=== PATIENT | male | born 1940 | race Caucasian/White ===

== ENCOUNTER 2017-05-22 16:12 | Observation (INO) | payer MEDICARE, OTHER ==
[~2017-05-22] VITALS: Ht 182.9 cm; Wt 112.9 kg
[~2017-05-22 16:12] MED LIST: ACET325 PO; ACET500 PO; ACIDOPHILUS1 EAC2 PO; ALTACE PO; AREDS PO; ASCO500 PO; ASPI81EC PO; ATOR80 PO; CHOL10002 PO; CHOLESTYRAMINE PO; CILO50 PO; CILOSTAZOL PO; CLON.1 PO; CLOP75 PO; Cilostazol50 MG PO; Cinnamon500 MG PO; DIGO.25 PO; DILT180 PO; DILT180ER PO; DILTIAZEM 180 MG; DIPATR PO; FENO145 PO; FERR325 PO; FINA5 PO; FISH1000 PO; FURO20 PO; FURO40 PO; Ferrous Sulfat325 M2 PO; GLYB5 PO; Garlic1 EACH PO; Glyburide5 MG PO; HYDACE5325 PO; Hair, Skin & N1 EACH PO; INSDET100 SC; INSDET100 SQ; INSU100I6 SC; INSUASPI SC; IPRA.03NI; IPRA.06NI; LEVSOD125 PO; LEVSOD150 PO; LEVSOD175 PO; LEVSOD25 PO; LEVSOD75 PO; LOPE2C PO; Lutein6 MG PO; MAGOXI400 PO; METF500 PO; METO100 PO; METO50 PO; MULTI VITAMIN1 EACH PO; MULVITMIND PO; Metoprolol Tar100 MG PO; NIAC500ER PO; Niacin1000 MG PO; OMEG1CAP30 PO; OMEP20ER PO; OXYM.05NI; Omeprazole20 M1 PO; POTCHL20ER PO; PRESERVISION A1 EACH PO; RAMI5 PO; SPIR25 PO; Synthroid300 MCG PO; TAMS.4ER PO; TAZTIA XT360 MG PO; Tiazac180 MG PO; WARF10 PO; WARF5 PO; WARF7.5 PO; ZEAXANTHIN100 GM; Zofran Odt4 MG SL
[2017-05-22 17:13] LABS: BASOPHILS ABSOLUTE AUTO 0.03 K/mm3 (0.00-0.23); BASOPHILS PERCENT AUTO 0 % (0-2); EOSINOPHILS ABSOLUTE AUTO 0.16 K/mm3 (0.00-0.68); EOSINOPHILS PERCENT AUTO 2 % (0-6); Hematocrit 29.2 % (37.0-53.0); Hemoglobin 9.4 g/dL (13.5-17.5); IMMATURE GRAN ABSOLUTE AUTO 0.02 K/mm3 (0.00-0.10); IMMATURE GRAN PERCENT AUTO 0 % (0-1); LYMPHOCYTES ABSOLUTE AUTO 1.27 K/mm3 (0.84-5.20); LYMPHOCYTES PERCENT AUTO 16 % (21-46); MONOCYTES PERCENT AUTO 11 % (4-13); Mean Corpuscular HGB 29.3 pg (26.0-34.0); Mean Corpuscular HGB Conc 32.2 g/dL (31.5-36.5); Mean Corpuscular Volume 91 fL (80-100); Mean Platelet Volume 10.4 fL (9.1-12.4); NEUTROPHILS PERCENT AUTO 71 % (41-73); Platelet Count 160 K/mm3 (150-400); RDW Coefficient Variation 16.7 % (11.7-14.2); RDW Standard Deviation 54.6 fL (35.1-46.3); Red Blood Cell Count 3.21 M/mm3 (4.30-5.90); White Blood Cell Count 8.08 K/mm3 (4.00-11.30)
[2017-05-22 17:37] LABS: Albumin, Blood 3.4 g/dL (3.4-5.0); Bilirubin, Total 0.4 mg/dL (0.1-1.0); Bun/Creatinine Ratio 22.1 (12.0-20.0); Calcium, Blood 8.4 mg/dL (8.5-10.1); Creatinine, Blood 1.81 mg/dL (0.60-1.20); Globulin, Blood 3.4 g/dL (2.2-4.0); Potassium, Blood 4.2 mmol/L (3.5-5.5); Total Protein, Blood 6.8 g/dL (6.4-8.2)
[2017-05-22 17:46] LABS: Troponin I 0.775 ng/mL (0.000-0.040)
[2017-05-22 20:10] LABS: International Normalized Ratio 2.07
[2017-05-22] MEDS ORDERED: METO25 PO (22:32)
[2017-05-23 02:04] LABS: Hematocrit 27.8 % (37.0-53.0); Hemoglobin 8.8 g/dL (13.5-17.5); Mean Corpuscular HGB 28.2 pg (26.0-34.0); Mean Corpuscular HGB Conc 31.7 g/dL (31.5-36.5); Mean Corpuscular Volume 89 fL (80-100); Mean Platelet Volume 10.1 fL (9.1-12.4); Platelet Count 148 K/mm3 (150-400); RDW Coefficient Variation 16.8 % (11.7-14.2); RDW Standard Deviation 53.2 fL (35.1-46.3); Red Blood Cell Count 3.12 M/mm3 (4.30-5.90); White Blood Cell Count 9.29 K/mm3 (4.00-11.30)
[2017-05-23 02:20] LABS: Anion Gap 9 mmol/L (6-16); Blood Urea Nitrogen 37 mg/dL (8-24); CHOL/HDL RATIO 2.7; CO2, Blood 21 mmol/L (21-32); Calcium, Blood 8.9 mg/dL (8.5-10.1); Chloride, Blood 111 mmol/L (98-108); Cholesterol 60 mg/dL (50-200); Creatinine, Blood 1.68 mg/dL (0.60-1.20); Glomerular Filtration Rate 42 (60-); Glucose, Blood 118 mg/dL (70-99); HDL Cholesterol 22 mg/dL (>39); LDL/HDL RATIO 0.2; Low Density Lipoprotein Chol 4 mg/dL (0-110); Potassium, Blood 3.8 mmol/L (3.5-5.5); Sodium, Blood 141 mmol/L (136-145); Triglycerides 171 mg/dL (30-160); Very Low Density Lipoprot Chol 34 mg/dL (6-32)
[2017-05-23 02:22] LABS: International Normalized Ratio 2.01; Prothrombin Time Results 21.4 Sec (9.7-11.5)
[2017-05-23 02:26] LABS: Creatine Kinase MB 2.8 ng/mL (0.0-3.6); Creatine Kinase MB Index 3.4 (0.0-4.0)
[2017-05-23 02:33] LABS: Troponin I 0.624 ng/mL (0.000-0.040)
[2017-05-23 09:51] LABS: Creatine Kinase MB 2.3 ng/mL (0.0-3.6); Troponin I 0.493 ng/mL (0.000-0.040)
[2017-05-23 10:22] LABS: Creatine Kinase MB Index 3.4 (0.0-4.0)
[2017-05-23] MEDS ORDERED: METO50 PO (13:42)
[2017-05-23] MEDS ORDERED: PANT40 PO (13:43)
[2017-06-03] MEDS ORDERED: XARELTO20 MG PO (04:58)
== END 2017-05-23 14:19 | disposition home or self-care (01) ==
LOC: ER 16:12 → MEDS 21:05 → ENPENDDIS 05-23 12:53 → MEDS 05-23 14:19
PROVIDERS: Emergency Medicine; Internal Medicine
DX: R07.89 Other chest pain (principal); R13.10 Dysphagia, unspecified; R10.13 Epigastric pain; I25.10 Atherosclerotic heart disease of native coronary artery without angina pectoris; I12.9 Hypertensive chronic kidney disease with stage 1 through stage 4 chronic kidney disease, or unspecified chronic kidney disease; E11.22 Type 2 diabetes mellitus with diabetic chronic kidney disease; N18.3 Chronic kidney disease, stage 3 (moderate); I48.2 Chronic atrial fibrillation; K21.9 Gastro-esophageal reflux disease without esophagitis; N40.0 Benign prostatic hyperplasia without lower urinary tract symptoms; E89.0 Postprocedural hypothyroidism; Z95.0 Presence of cardiac pacemaker; Z95.2 Presence of prosthetic heart valve; Z79.01 Long term (current) use of anticoagulants; Z98.52 Vasectomy status; Z85.038 Personal history of other malignant neoplasm of large intestine; Z85.828 Personal history of other malignant neoplasm of skin; Z90.49 Acquired absence of other specified parts of digestive tract; Z79.899 Other long term (current) drug therapy; Z87.891 Personal history of nicotine dependence; Z98.890 Other specified postprocedural states
CPT/HCPCS: 36415; 71046; 80048; 80053; 80061; 82550; 82553; 82947; 83690; 83880; 84484; 85025; 85027; 85610; 93005; 93010; 96374; 96376; 99285; C9113; G0378; J1815; J1817

== ENCOUNTER 2017-06-04 19:34 | Inpatient (IN) | payer MEDICARE, OTHER ==
[~2017-06-04] VITALS: Ht 180.3 cm; Wt 114.4 kg
[~2017-06-04 19:34] MED LIST changes: +METO25 PO; +PANT40 PO; +XARELTO20 MG PO
[2017-06-04 20:02] LABS: BASOPHILS ABSOLUTE AUTO 0.02 K/mm3 (0.00-0.23); BASOPHILS PERCENT AUTO 0 % (0-2); EOSINOPHILS ABSOLUTE AUTO 0.16 K/mm3 (0.00-0.68); EOSINOPHILS PERCENT AUTO 1 % (0-6); Hematocrit 22.4 % (37.0-53.0); Hemoglobin 6.9 g/dL (13.5-17.5); IMMATURE GRAN ABSOLUTE AUTO 0.08 K/mm3 (0.00-0.10); IMMATURE GRAN PERCENT AUTO 1 % (0-1); LYMPHOCYTES ABSOLUTE AUTO 2.49 K/mm3 (0.84-5.20); LYMPHOCYTES PERCENT AUTO 16 % (21-46); MONOCYTES ABSOLUTE AUTO 1.42 K/mm3 (0.16-1.47); MONOCYTES PERCENT AUTO 9 % (4-13); Mean Corpuscular HGB 29.2 pg (26.0-34.0); Mean Corpuscular HGB Conc 30.8 g/dL (31.5-36.5); Mean Platelet Volume 10.6 fL (9.1-12.4); NEUTROPHILS ABSOLUTE AUTO 11.12 K/mm3 (1.96-9.15); NEUTROPHILS PERCENT AUTO 73 % (41-73); Platelet Count 212 K/mm3 (150-400); RDW Coefficient Variation 18.5 % (11.7-14.2); RDW Standard Deviation 61.1 fL (35.1-46.3); Red Blood Cell Count 2.36 M/mm3 (4.30-5.90); White Blood Cell Count 15.29 K/mm3 (4.00-11.30)
[2017-06-04 20:05] LABS: Mean Corpuscular Volume 95 fL (80-100)
[2017-06-04] MEDS ORDERED: METO50 PO (20:11)
[2017-06-04 20:12] LABS: International Normalized Ratio 1.33
[2017-06-04 20:19] LABS: Albumin, Blood 2.4 g/dL (3.4-5.0); Albumin/Globulin Ratio 0.8 (0.8-1.8); Bilirubin, Total 0.6 mg/dL (0.1-1.0); Bun/Creatinine Ratio 28.5 (12.0-20.0); Calcium, Blood 8.3 mg/dL (8.5-10.1); Creatinine, Blood 1.72 mg/dL (0.60-1.20); Potassium, Blood 4.4 mmol/L (3.5-5.5); Total Protein, Blood 5.4 g/dL (6.4-8.2)
[2017-06-04 20:28] LABS: Thyroid Stimulating Hormone 3.47 uIU/mL (0.360-4.800); Troponin I 0.633 ng/mL (0.000-0.040)
[2017-06-05 00:26] LABS: Base Excess Venous -7.2 mmol/L; PCO2 Venous 32.4 mmHg (38-42); PO2 Venous 68.8 mmHg (38-42); pH Blood Venous 7.36 (7.34-7.37)
[2017-06-05 00:48] LABS: Hematocrit 24.6 % (37.0-53.0); Hemoglobin 7.7 g/dL (13.5-17.5)
[2017-06-05 01:33] LABS: Troponin I 2.19 ng/mL (0.000-0.040)
[2017-06-05 06:23] LABS: BASOPHILS ABSOLUTE AUTO 0.01 K/mm3 (0.00-0.23); BASOPHILS PERCENT AUTO 0 % (0-2); EOSINOPHILS ABSOLUTE AUTO 0.01 K/mm3 (0.00-0.68); EOSINOPHILS PERCENT AUTO 0 % (0-6); Hematocrit 28.4 % (37.0-53.0); IMMATURE GRAN PERCENT AUTO 1 % (0-1); LYMPHOCYTES ABSOLUTE AUTO 1.03 K/mm3 (0.84-5.20); LYMPHOCYTES PERCENT AUTO 7 % (21-46); MONOCYTES ABSOLUTE AUTO 1.79 K/mm3 (0.16-1.47); MONOCYTES PERCENT AUTO 12 % (4-13); Mean Corpuscular HGB 29.2 pg (26.0-34.0); Mean Corpuscular HGB Conc 31.7 g/dL (31.5-36.5); NEUTROPHILS ABSOLUTE AUTO 11.97 K/mm3 (1.96-9.15); NEUTROPHILS PERCENT AUTO 80 % (41-73); Platelet Count 184 K/mm3 (150-400); RDW Coefficient Variation 18.2 % (11.7-14.2); Red Blood Cell Count 3.08 M/mm3 (4.30-5.90); White Blood Cell Count 14.91 K/mm3 (4.00-11.30)
[2017-06-05 06:44] LABS: Albumin, Blood 2.9 g/dL (3.4-5.0); Albumin/Globulin Ratio 0.9 (0.8-1.8); Bun/Creatinine Ratio 31.6 (12.0-20.0); Calcium, Blood 8.6 mg/dL (8.5-10.1); Creatinine, Blood 1.77 mg/dL (0.60-1.20); Globulin, Blood 3.2 g/dL (2.2-4.0); Total Protein, Blood 6.1 g/dL (6.4-8.2)
[2017-06-05 07:01] LABS: Troponin I 41.3 ng/mL (0.000-0.040)
[2017-06-05 07:10] LABS: Mean Corpuscular Volume 92 fL (80-100)
[2017-06-05 07:17] LABS: Creatine Kinase MB 45.7 ng/mL (0.0-3.6); Creatine Kinase MB Index 10.4 (0.0-4.0)
[2017-06-05 10:03] LABS: Hematocrit 30.3 % (37.0-53.0); Hemoglobin 9.5 g/dL (13.5-17.5)
[2017-06-05 16:35] LABS: Hematocrit 30.3 % (37.0-53.0); Hemoglobin 9.5 g/dL (13.5-17.5)
[2017-06-05 21:55] LABS: Hematocrit 28.7 % (37.0-53.0); Hemoglobin 9.3 g/dL (13.5-17.5)
[2017-06-06 04:08] LABS: Hematocrit 28.2 % (37.0-53.0); Hemoglobin 8.9 g/dL (13.5-17.5)
[2017-06-07 03:45] LABS: BASOPHILS ABSOLUTE AUTO 0.02 K/mm3 (0.00-0.23); BASOPHILS PERCENT AUTO 0 % (0-2); EOSINOPHILS ABSOLUTE AUTO 0.06 K/mm3 (0.00-0.68); EOSINOPHILS PERCENT AUTO 1 % (0-6); Hematocrit 26.8 % (37.0-53.0); Hemoglobin 8.5 g/dL (13.5-17.5); IMMATURE GRAN ABSOLUTE AUTO 0.11 K/mm3 (0.00-0.10); IMMATURE GRAN PERCENT AUTO 1 % (0-1); LYMPHOCYTES ABSOLUTE AUTO 1.23 K/mm3 (0.84-5.20); LYMPHOCYTES PERCENT AUTO 10 % (21-46); MONOCYTES ABSOLUTE AUTO 1.55 K/mm3 (0.16-1.47); MONOCYTES PERCENT AUTO 13 % (4-13); Mean Corpuscular HGB 29.6 pg (26.0-34.0); Mean Corpuscular HGB Conc 31.7 g/dL (31.5-36.5); Mean Corpuscular Volume 93 fL (80-100); Mean Platelet Volume 11.1 fL (9.1-12.4); NEUTROPHILS PERCENT AUTO 75 % (41-73); Platelet Count 168 K/mm3 (150-400); RDW Coefficient Variation 18.8 % (11.7-14.2); Red Blood Cell Count 2.87 M/mm3 (4.30-5.90); White Blood Cell Count 11.97 K/mm3 (4.00-11.30)
[2017-06-07 04:01] LABS: Bun/Creatinine Ratio 33.9 (12.0-20.0); Calcium, Blood 8.1 mg/dL (8.5-10.1); Creatinine, Blood 1.74 mg/dL (0.60-1.20); Potassium, Blood 4.2 mmol/L (3.5-5.5)
[2017-06-08 04:03] LABS: BASOPHILS ABSOLUTE AUTO 0.02 K/mm3 (0.00-0.23); BASOPHILS PERCENT AUTO 0 % (0-2); EOSINOPHILS ABSOLUTE AUTO 0.13 K/mm3 (0.00-0.68); EOSINOPHILS PERCENT AUTO 1 % (0-6); Hemoglobin 8.3 g/dL (13.5-17.5); IMMATURE GRAN ABSOLUTE AUTO 0.09 K/mm3 (0.00-0.10); IMMATURE GRAN PERCENT AUTO 1 % (0-1); LYMPHOCYTES ABSOLUTE AUTO 0.92 K/mm3 (0.84-5.20); LYMPHOCYTES PERCENT AUTO 9 % (21-46); MONOCYTES ABSOLUTE AUTO 1.23 K/mm3 (0.16-1.47); MONOCYTES PERCENT AUTO 12 % (4-13); Mean Corpuscular HGB 28.9 pg (26.0-34.0); Mean Corpuscular HGB Conc 30.7 g/dL (31.5-36.5); Mean Corpuscular Volume 94 fL (80-100); Mean Platelet Volume 11.4 fL (9.1-12.4); NEUTROPHILS ABSOLUTE AUTO 7.56 K/mm3 (1.96-9.15); NEUTROPHILS PERCENT AUTO 76 % (41-73); Platelet Count 166 K/mm3 (150-400); RDW Coefficient Variation 18.3 % (11.7-14.2); RDW Standard Deviation 60.7 fL (35.1-46.3); Red Blood Cell Count 2.87 M/mm3 (4.30-5.90); White Blood Cell Count 9.95 K/mm3 (4.00-11.30)
[2017-06-08 04:16] LABS: Bun/Creatinine Ratio 34.3 (12.0-20.0); Calcium, Blood 8.2 mg/dL (8.5-10.1); Creatinine, Blood 1.72 mg/dL (0.60-1.20); Potassium, Blood 3.9 mmol/L (3.5-5.5)
== END 2017-06-08 08:30 ==
LOC: ER 19:34 → ICUW 21:03 → ICUE 21:03
PROVIDERS: Emergency Medicine; Family Medicine; Internal Medicine
PROC: 2Y41X5Z Packing of Nasal Region using Packing Material (ICD-10-PCS; principal; 2017-06-04)
PROC: 30233N1 Transfusion of Nonautologous Red Blood Cells into Peripheral Vein, Percutaneous Approach (ICD-10-PCS; 2017-06-04)
DX: I21.4 Non-ST elevation (NSTEMI) myocardial infarction (principal); T82.857A Stenosis of other cardiac prosthetic devices, implants and grafts, initial encounter; I46.2 Cardiac arrest due to underlying cardiac condition; E11.22 Type 2 diabetes mellitus with diabetic chronic kidney disease; E11.51 Type 2 diabetes mellitus with diabetic peripheral angiopathy without gangrene; D62 Acute posthemorrhagic anemia; K92.2 Gastrointestinal hemorrhage, unspecified; I48.2 Chronic atrial fibrillation; N18.3 Chronic kidney disease, stage 3 (moderate); I25.119 Atherosclerotic heart disease of native coronary artery with unspecified angina pectoris; I25.5 Ischemic cardiomyopathy; I12.9 Hypertensive chronic kidney disease with stage 1 through stage 4 chronic kidney disease, or unspecified chronic kidney disease; K21.9 Gastro-esophageal reflux disease without esophagitis; E78.5 Hyperlipidemia, unspecified; G89.29 Other chronic pain; E66.09 Other obesity due to excess calories; M54.5 Low back pain; R04.0 Epistaxis; E89.0 Postprocedural hypothyroidism; Z79.02 Long term (current) use of antithrombotics/antiplatelets; Z79.01 Long term (current) use of anticoagulants; Z79.4 Long term (current) use of insulin; Z95.3 Presence of xenogenic heart valve; Z93.3 Colostomy status; Z85.038 Personal history of other malignant neoplasm of large intestine; Z95.0 Presence of cardiac pacemaker; Z86.718 Personal history of other venous thrombosis and embolism; Z85.820 Personal history of malignant melanoma of skin; Z68.34 Body mass index [BMI] 34.0-34.9, adult; Z93.2 Ileostomy status
CPT/HCPCS: 30901; 36415; 36430; 71045; 74176; 80048; 80053; 82550; 82553; 82803; 82947; 83690; 83880; 84443; 84484; 85014; 85018; 85025; 85610; 86850; 86900; 86901; 86923; 93005; 93010; 93308; 93321; 96361; 96374; 96375; 96376; 99283; 99285; C9113; J1170; J1815; J2405; J3010; J7030; P9016